=== PATIENT | female | born 1960 | race African-American/Black ===

== ENCOUNTER 2018-11-20 14:44 | Emergency (ER) | payer OTHER ==
[~2018-11-20] VITALS: Ht 162.6 cm; Wt 95.5 kg
--- NOTE | 2018-11-20 16:09 | REP ---
CT brain without contrast: History: Headache. No comparison brain imaging. Findings: Preliminary digital business transformation manager radiograph is unremarkable. Bone window settings demonstrate an intact calvarium. There is fairly heavy vascular calcification in the distal internal carotid arteries bilaterally. On soft tissue window settings, lateral, third, and fourth ventricles are normal in size and position. There is no evidence of hemorrhage or infarction. No mass, extra-axial fluid collection or midline shift is seen. Andres white differentiation pattern is normal. Impression: Vascular calcification. No acute intracranial abnormality. Electronically Signed by Marcos Meredith MD 11/20/2018 04:27 P
[2018-11-20] MEDS ORDERED: METOCLOPRAMIDE INJ 10MG/2ML VIAL (J2765) IV ONE (16:15)
[2018-11-20] MEDS ORDERED: NS 1,000 ML IV ONE (16:15)
[2018-11-20 17:01] LABS: BASO % 0.7 % (0.0-1.0); EOS # 0.2 10^3/uL (0.0-0.50); EOS % 3.3 % (0.0-3.0); HEMATOCRIT 40.6 % (36.0-47.0); HEMOGLOBIN 13.4 g/dl (12.0-15.5); LYMPH % 36.3 % (24.0-44.0); MEAN CORPUSCULAR HEMOGLOBIN 32.4 pg (27.0-33.0); MEAN CORPUSCULAR VOLUME 98.3 fl (80.0-96.0); MONO # 0.5 10^3/uL (0.0-0.8); MONO % 9.2 % (0.0-5.0); NEUTROPHILS # 2.8 10^3/uL (1.8-7.7); NEUTROPHILS % 50.1 % (36.0-66.0); PLATELET COUNT, AUTOMATED 210 10^3/uL (150-450); RED BLOOD COUNT 4.13 10^6/uL (4.00-5.40); WHITE BLOOD COUNT 5.5 10^3/uL (4.0-10.0)
[2018-11-20 17:14] LABS: ALBUMIN 3.7 GM/DL (3.2-5.2); ALT/SGPT 28 U/L (12-78); AMYLASE 59 U/L (25-115); BILIRUBIN,DIRECT 0.1 MG/DL (0.0-0.2); BILIRUBIN,TOTAL 0.5 MG/DL (0.2-1.0); BLOOD UREA NITROGEN 13 MG/DL (7-18); CALCIUM LEVEL 9.9 MG/DL (8.5-10.1); CARBON DIOXIDE LEVEL 27 MEQ/L (21-32); CHLORIDE LEVEL 106 MEQ/L (98-107); CK-MB VALUE MASS 1.6 NG/ML (<3.6); CPK CREATINE PHOSPHOKINASE 205 U/L (26-192); CREATININE FOR GFR 1.05 MG/DL (0.55-1.30); GLOMERULAR FILTRATION RATE 57.1 (>51); GLUCOSE, FASTING 94 MG/DL (70-100); LIPASE 210 U/L (73-393); MB/CK RELATIVE INDEX 0.78 (< OR =4); POTASSIUM SERUM 3.7 MEQ/L (3.5-5.1); SODIUM LEVEL 140 MEQ/L (136-145); TOTAL PROTEIN 7.5 GM/DL (6.4-8.2); TROPONIN I < 0.02 NG/ML (< 0.10)
[2018-11-20] MEDS ORDERED: REGL5TAB2 PO (19:19)
[2018-11-20] MEDS ORDERED: KETO10TAB PO (19:19)
[2018-11-20 19:35] VITALS: BP 141/73
--- NOTE | 2018-11-22 05:25 | ECGEPIP ---
[facility] - ED Test Date: 2018-11-20 Pat Name: SYMONE ANGEL Department: Room: - Gender: Female Customer Resource Specialist: MELINDA : 1960 Requested By: MISHA Duvall Order Number: [id number] Reading MD: Garrison Morrison Measurements Intervals [place] Rate: 61 P: 60 NE: 161 QRS: 5 QRSD: 92 T: 46 QT: 414 QTc: 417 Interpretive Statements SINUS RHYTHM NO PRIORS FOR COMPARISON Electronically Signed on 11-22-2018 5:24:57 EDT by Garrison Morrison
== END 2018-11-20 19:48 | disposition home or self-care (01) ==
LOC: EDBD 14:44 → M ED 14:44
DX: R51 Headache (principal); M54.5 Low back pain; I10 Essential (primary) hypertension; I70.8 Atherosclerosis of other arteries
CPT/HCPCS: 36415; 70450; 80048; 80076; 82150; 82550; 82553; 83690; 84484; 85025; 93005; 93041; 96361; 96374; 99285; J2765

== ENCOUNTER 2023-01-23 22:52 | Inpatient (IN) | payer BC, OTHER ==
[~2023-01-23] VITALS: Ht 165.1 cm; Wt 68.2 kg
[~2023-01-23 22:52] MED LIST: KETO10TAB PO; REGL5TAB2 PO
[2023-01-24 00:57] LABS: ETHYL ALCOHOL (ETHANOL) < 0.003 % (0.000-0.010)
[2023-01-24 00:58] LABS: SALICYLATE LEVEL < 3.0 MG/DL (<30)
[2023-01-24 00:59] LABS: ALBUMIN 4.2 G/DL (3.2-5.2); ALKALINE PHOSPHATASE 69 U/L (46-116); ALT/SGPT 41 U/L (7.0-40); AST/SGOT 16 U/L (<34); BILIRUBIN,DIRECT 0.2 MG/DL (<0.4); BILIRUBIN,TOTAL 0.7 MG/DL (0.3-1.2); BLOOD UREA NITROGEN 15 MG/DL (9-23); CALCIUM LEVEL 11.2 MG/DL (8.3-10.6); CARBON DIOXIDE LEVEL 26 MMOL/L (20-31); CHLORIDE LEVEL 106 MMOL/L (98-107); CREATININE FOR GFR 0.73 MG/DL (0.55-1.30); GLOMERULAR FILTRATION RATE > 60.0 (>45); GLUCOSE, FASTING 114 MG/DL (74-106); SODIUM LEVEL 141 MMOL/L (136-145); TOTAL PROTEIN 7.9 G/DL (5.7-8.2)
[2023-01-24 01:01] LABS: HEMATOCRIT 40.5 % (36.0-47.0); HEMOGLOBIN 13.3 g/dl (12.0-15.5); MEAN CORPUSCULAR HEMOGLOBIN 31.3 pg (27.0-33.0); MEAN CORPUSCULAR HGB CONC 32.8 g/dl (32.0-36.5); MEAN CORPUSCULAR VOLUME 95.3 fl (80.0-96.0); PLATELET COUNT, AUTOMATED 211 10^3/uL (150-450); RED BLOOD COUNT 4.25 10^6/uL (4.00-5.40); THYROID STIMULATING HORMONE 1.633 uIU/ML (0.55-4.78)
[2023-01-24 03:01] LABS: BARBITURATES URINE NEGATIVE (NEGATIVE); COCAINE METABOLITE URINE NEGATIVE (NEGATIVE); METHADONE URINE NEGATIVE (NEGATIVE); OPIATES URINE NEGATIVE (NEGATIVE); PHENCYCLIDINE URINE NEGATIVE (NEGATIVE)
[2023-01-24 03:02] LABS: AMPHETAMINES LEVEL URINE NEGATIVE (NEGATIVE); BENZODIAZEPINES URINE NEGATIVE (NEGATIVE); CANNABINOIDS URINE NEGATIVE (NEGATIVE)
[2023-01-24] MEDS ORDERED: HALOPERIDOL 5MG/ML 1ML VIAL IM STA (06:05)
[2023-01-24] MEDS ORDERED: HALO10TA20 PO (06:07)
[2023-01-24] MEDS ORDERED: CLON-412 PO (06:07)
[2023-01-24] MEDS ORDERED: ASPI-161 PO ×2 (06:07→10:05)
[2023-01-24] MEDS ORDERED: LORazepam 2 MG TAB PO STA (08:18)
[2023-01-24] MEDS ORDERED: MED REC IN PROGRESS XX SCH (08:30)
[2023-01-24] MEDS ORDERED: ASPIRIN 81MG ENTERIC TABLET PO SCH (09:00)
[2023-01-24] MEDS ORDERED: DYAZIDE 37.5/25 CAP (TRIAM/HCTZ) PO SCH (09:00)
[2023-01-24] MEDS ORDERED: LORazepam 2 MG/ML 1ML VIAL IM STA (09:20)
[2023-01-24] MEDS ORDERED: SERT50TA29 PO (09:46)
[2023-01-24] MEDS ORDERED: MIRT-10 PO (09:46)
[2023-01-24] MEDS ORDERED: TRIA37.5 PO (09:46)
[2023-01-24] MEDS ORDERED: LISI20TA33 PO (09:46)
[2023-01-24] MEDS ORDERED: HYDR-3910 PO (09:46)
[2023-01-24] MEDS ORDERED: PRAV80TA2 PO (09:46)
[2023-01-24] MEDS ORDERED: LORA2CON5 PO (10:03)
[2023-01-24] MEDS ORDERED: ASPI81TA26 PO (10:03)
[2023-01-24] MEDS ORDERED: LORA2TAB14 PO (10:05)
[2023-01-24] MEDS ORDERED: HOME MED LIST COMPLETE! XX SCH (10:15)
[2023-01-24] MEDS ORDERED: diphenhydrAMINE 25MG CAP PO PRN (13:30)
[2023-01-24] MEDS ORDERED: traZODone 50 MG TAB PO PRN (13:30)
[2023-01-24] MEDS ORDERED: MOM 30ML SUSPENSION UDC PO PRN (13:30)
[2023-01-24] MEDS ORDERED: MAALOX 30 ML SUSP *UDC PO PRN (13:30)
[2023-01-24 14:57] LABS: CPK CREATINE PHOSPHOKINASE 148 U/L (34-145)
[2023-01-24] MEDS: SERTRALINE HCL 50 MG TAB PO SCH (18:01)
[2023-01-24] MEDS: LORazepam 2 MG TAB PO SCH (18:01)
[2023-01-24] MEDS ORDERED: **hydrALAZINE HCL** 25 MG TAB PO SCH (21:00)
[2023-01-24] MEDS: **hydrALAZINE HCL** 25 MG TAB PO SCH (22:01)
[2023-01-25] MEDS: LORazepam 2 MG TAB PO SCH ×4 (01:22→17:36)
[2023-01-25] MEDS: PRAVASTATIN 20 MG TAB PO SCH (09:00)
[2023-01-25] MEDS: ENOXAPARIN 40MG/0.4ML SYRINGE (J1650 PER 10MG) SC SCH (09:00)
[2023-01-25] MEDS: **hydrALAZINE HCL** 25 MG TAB PO SCH ×2 (09:00→21:10)
[2023-01-25] MEDS: SERTRALINE HCL 50 MG TAB PO SCH (09:00)
[2023-01-25] MEDS: ASPIRIN 81MG ENTERIC TABLET PO SCH (09:00)
[2023-01-25 17:56] VITALS: BP 154/92; TEMP 99.8; O2SAT 97
[2023-01-26] MEDS: LORazepam 2 MG TAB PO SCH ×5 (00:07→23:54)
[2023-01-26 06:43] VITALS: BP 118/74; TEMP 97.8; O2SAT 94
[2023-01-26] MEDS: PRAVASTATIN 20 MG TAB PO SCH (09:00)
[2023-01-26] MEDS: SERTRALINE HCL 50 MG TAB PO SCH (09:00)
[2023-01-26] MEDS: ENOXAPARIN 40MG/0.4ML SYRINGE (J1650 PER 10MG) SC SCH (09:00)
[2023-01-26] MEDS: **hydrALAZINE HCL** 25 MG TAB PO SCH ×2 (09:00→20:33)
[2023-01-26] MEDS: ASPIRIN 81MG ENTERIC TABLET PO SCH (09:00)
[2023-01-26 18:28] VITALS: BP 153/81; TEMP 100.2; O2SAT 98
[2023-01-26 18:47] VITALS: TEMP 99
[2023-01-27] MEDS: LORazepam 2 MG TAB PO SCH ×4 (06:00→23:48)
[2023-01-27 06:19] VITALS: BP 142/78; TEMP 97.6; O2SAT 95
[2023-01-27] MEDS: ENOXAPARIN 40MG/0.4ML SYRINGE (J1650 PER 10MG) SC SCH ×2 (09:00→10:19)
[2023-01-27] MEDS: PRAVASTATIN 20 MG TAB PO SCH ×2 (09:00→10:18)
[2023-01-27] MEDS: **hydrALAZINE HCL** 25 MG TAB PO SCH ×2 (10:18→21:02)
[2023-01-27] MEDS: ASPIRIN 81MG ENTERIC TABLET PO SCH (10:18)
[2023-01-27] MEDS: SERTRALINE HCL 50 MG TAB PO SCH (10:19)
[2023-01-27] MEDS: ACETAMINOPHEN TAB 650MG DOSE (2X325MG) PO PRN (14:36)
[2023-01-27 17:02] VITALS: BP 142/88; TEMP 98.2; O2SAT 99
[2023-01-28] MEDS: LORazepam 2 MG TAB PO SCH ×4 (05:48→23:58)
[2023-01-28 06:10] VITALS: BP 131/62; TEMP 97.9; O2SAT 96
[2023-01-28] MEDS: ENOXAPARIN 40MG/0.4ML SYRINGE (J1650 PER 10MG) SC SCH (09:00)
[2023-01-28] MEDS: SERTRALINE HCL 50 MG TAB PO SCH (09:00)
[2023-01-28] MEDS: PRAVASTATIN 20 MG TAB PO SCH (09:00)
[2023-01-28] MEDS: ASPIRIN 81MG ENTERIC TABLET PO SCH (10:05)
[2023-01-28] MEDS: **hydrALAZINE HCL** 25 MG TAB PO SCH ×2 (10:07→21:17)
[2023-01-29] MEDS: LORazepam 2 MG TAB PO SCH ×3 (05:37→18:00)
[2023-01-29 06:36] VITALS: BP 139/83; TEMP 98.3; O2SAT 98
[2023-01-29] MEDS: ENOXAPARIN 40MG/0.4ML SYRINGE (J1650 PER 10MG) SC SCH (09:00)
[2023-01-29] MEDS: ASPIRIN 81MG ENTERIC TABLET PO SCH (09:27)
[2023-01-29] MEDS: **hydrALAZINE HCL** 25 MG TAB PO SCH ×2 (09:28→21:55)
[2023-01-29] MEDS: PRAVASTATIN 20 MG TAB PO SCH (09:51)
[2023-01-29] MEDS: SERTRALINE HCL 50 MG TAB PO SCH (10:16)
[2023-01-29 16:24] VITALS: BP 144/90; TEMP 98.9; O2SAT 100
[2023-01-29] MEDS: ACETAMINOPHEN TAB 650MG DOSE (2X325MG) PO PRN (18:09)
[2023-01-30] MEDS: LORazepam 2 MG TAB PO SCH ×6 (06:00→23:14)
[2023-01-30 06:39] VITALS: BP 149/82; TEMP 97.6; O2SAT 98
[2023-01-30] MEDS: **hydrALAZINE HCL** 25 MG TAB PO SCH ×4 (09:00→21:43)
[2023-01-30] MEDS: ENOXAPARIN 40MG/0.4ML SYRINGE (J1650 PER 10MG) SC SCH (09:00)
[2023-01-30] MEDS: SERTRALINE HCL 50 MG TAB PO SCH (09:52)
[2023-01-30] MEDS: ASPIRIN 81MG ENTERIC TABLET PO SCH (09:53)
[2023-01-30] MEDS: PRAVASTATIN 20 MG TAB PO SCH (09:54)
[2023-01-30 15:36] LABS: HEMATOCRIT 37.4 % (36.0-47.0); MEAN CORPUSCULAR HEMOGLOBIN 31.3 pg (27.0-33.0); MEAN CORPUSCULAR HGB CONC 32.1 g/dl (32.0-36.5); MEAN CORPUSCULAR VOLUME 97.4 fl (80.0-96.0); PLATELET COUNT, AUTOMATED 172 10^3/uL (150-450); RED BLOOD COUNT 3.84 10^6/uL (4.00-5.40)
[2023-01-31] MEDS: LORazepam 2 MG TAB PO SCH ×3 (06:00→18:00)
[2023-01-31 06:37] VITALS: BP 124/71; TEMP 98.3; O2SAT 98
[2023-01-31] MEDS: ENOXAPARIN 40MG/0.4ML SYRINGE (J1650 PER 10MG) SC SCH (09:00)
[2023-01-31] MEDS: SERTRALINE 100 MG TAB PO SCH (09:00)
[2023-01-31] MEDS: PRAVASTATIN 20 MG TAB PO SCH (10:38)
[2023-01-31] MEDS: ASPIRIN 81MG ENTERIC TABLET PO SCH (10:38)
[2023-01-31] MEDS: **hydrALAZINE HCL** 25 MG TAB PO SCH ×2 (10:39→21:14)
[2023-01-31 16:23] VITALS: BP 124/79; TEMP 98.8; O2SAT 98
[2023-02-01] MEDS: LORazepam 2 MG TAB PO SCH ×4 (05:46→18:00)
[2023-02-01 06:24] VITALS: TEMP 97.9
[2023-02-01] MEDS: **hydrALAZINE HCL** 25 MG TAB PO SCH ×2 (09:00→22:12)
[2023-02-01] MEDS: SERTRALINE 100 MG TAB PO SCH (09:00)
[2023-02-01] MEDS: PRAVASTATIN 20 MG TAB PO SCH (09:00)
[2023-02-01] MEDS: ENOXAPARIN 40MG/0.4ML SYRINGE (J1650 PER 10MG) SC SCH (09:00)
[2023-02-01] MEDS: ASPIRIN 81MG ENTERIC TABLET PO SCH (09:00)
[2023-02-02] MEDS: LORazepam 2 MG TAB PO SCH ×4 (05:46→17:38)
[2023-02-02 06:24] VITALS: BP 156/90; TEMP 98.9; O2SAT 99
[2023-02-02 06:53] VITALS: BP 154/78
[2023-02-02] MEDS: SERTRALINE 100 MG TAB PO SCH (09:00)
[2023-02-02] MEDS: ENOXAPARIN 40MG/0.4ML SYRINGE (J1650 PER 10MG) SC SCH (09:00)
[2023-02-02] MEDS: PRAVASTATIN 20 MG TAB PO SCH (09:00)
[2023-02-02] MEDS: ASPIRIN 81MG ENTERIC TABLET PO SCH (09:00)
[2023-02-02] MEDS: **hydrALAZINE HCL** 25 MG TAB PO SCH ×2 (10:36→21:57)
[2023-02-02 16:49] VITALS: BP 162/98; TEMP 98.8; O2SAT 98
[2023-02-03] MEDS: LORazepam 2 MG TAB PO SCH ×4 (06:40→18:00)
[2023-02-03 06:42] VITALS: BP 150/82; TEMP 99.6; O2SAT 100
[2023-02-03] MEDS ORDERED: BENZTROPINE 1 MG TAB PO PRN (09:00)
[2023-02-03] MEDS: PRAVASTATIN 20 MG TAB PO SCH (09:00)
[2023-02-03] MEDS: ENOXAPARIN 40MG/0.4ML SYRINGE (J1650 PER 10MG) SC SCH (09:00)
[2023-02-03] MEDS: ASPIRIN 81MG ENTERIC TABLET PO SCH (10:23)
[2023-02-03] MEDS: **hydrALAZINE HCL** 25 MG TAB PO SCH ×2 (10:23→21:19)
[2023-02-03] MEDS: SERTRALINE 100 MG TAB PO SCH (10:24)
[2023-02-03 15:58] VITALS: BP 138/84; TEMP 98; O2SAT 98
[2023-02-04] MEDS: LORazepam 2 MG TAB PO SCH ×4 (00:15→18:00)
[2023-02-04 06:31] VITALS: BP 147/77; TEMP 99.3; O2SAT 98
[2023-02-04] MEDS: ENOXAPARIN 40MG/0.4ML SYRINGE (J1650 PER 10MG) SC SCH (09:00)
[2023-02-04] MEDS: PRAVASTATIN 20 MG TAB PO SCH (09:00)
[2023-02-04] MEDS: SERTRALINE 100 MG TAB PO SCH (09:00)
[2023-02-04] MEDS: ASPIRIN 81MG ENTERIC TABLET PO SCH (10:54)
[2023-02-04] MEDS: **hydrALAZINE HCL** 25 MG TAB PO SCH ×2 (10:55→21:36)
[2023-02-04 16:18] VITALS: BP 138/84; TEMP 98.1; O2SAT 99
[2023-02-05] MEDS: LORazepam 2 MG TAB PO SCH ×5 (05:39→23:10)
[2023-02-05 06:16] VITALS: BP 167/83; TEMP 97.9; O2SAT 96
[2023-02-05] MEDS: **hydrALAZINE HCL** 25 MG TAB PO SCH ×2 (09:00→21:00)
[2023-02-05] MEDS: PRAVASTATIN 20 MG TAB PO SCH (09:00)
[2023-02-05] MEDS: ENOXAPARIN 40MG/0.4ML SYRINGE (J1650 PER 10MG) SC SCH (09:00)
[2023-02-05] MEDS: SERTRALINE 100 MG TAB PO SCH (09:00)
[2023-02-05] MEDS: ASPIRIN 81MG ENTERIC TABLET PO SCH (09:00)
[2023-02-05 17:06] VITALS: BP 131/86; TEMP 98.6; O2SAT 98
[2023-02-06] MEDS: LORazepam 2 MG TAB PO SCH ×4 (05:34→23:25)
[2023-02-06 06:00] VITALS: BP 161/76; TEMP 98.1; O2SAT 99
[2023-02-06] MEDS: ASPIRIN 81MG ENTERIC TABLET PO SCH (09:00)
[2023-02-06] MEDS: **hydrALAZINE HCL** 25 MG TAB PO SCH ×2 (09:00→21:57)
[2023-02-06] MEDS: ENOXAPARIN 40MG/0.4ML SYRINGE (J1650 PER 10MG) SC SCH (09:00)
[2023-02-06] MEDS: PRAVASTATIN 20 MG TAB PO SCH (09:00)
[2023-02-06] MEDS: SERTRALINE 100 MG TAB PO SCH (09:00)
[2023-02-06] MEDS ORDERED: HALOPERIDOL 5MG/ML 1ML VIAL IM STA (10:44)
[2023-02-06] MEDS ORDERED: LORazepam 2 MG/ML 1ML VIAL IM STA (10:44)
[2023-02-06 17:55] VITALS: BP 142/90; TEMP 98.9; O2SAT 100
[2023-02-07] MEDS: LORazepam 2 MG TAB PO SCH ×4 (06:06→18:00)
[2023-02-07 06:52] VITALS: BP_SYST 156; BP_SYST 90; BP_DIAS 54; BP_DIAS 86; TEMP 97.7; TEMP 98.3; O2SAT 97; O2SAT 99
[2023-02-07] MEDS: SERTRALINE 100 MG TAB PO SCH ×2 (09:00→09:57)
[2023-02-07] MEDS: ENOXAPARIN 40MG/0.4ML SYRINGE (J1650 PER 10MG) SC SCH ×2 (09:00→09:57)
[2023-02-07] MEDS: ASPIRIN 81MG ENTERIC TABLET PO SCH (09:56)
[2023-02-07] MEDS: PRAVASTATIN 20 MG TAB PO SCH (09:56)
[2023-02-07] MEDS: **hydrALAZINE HCL** 25 MG TAB PO SCH ×2 (09:57→21:36)
[2023-02-07] MEDS ORDERED: HALOPERIDOL 5MG/ML 1ML VIAL IM STA (12:55)
[2023-02-07] MEDS ORDERED: LORazepam 2 MG/ML 1ML VIAL IM STA (12:55)
[2023-02-07 16:07] VITALS: BP 143/88; TEMP 98.1; O2SAT 97
[2023-02-08] MEDS: LORazepam 2 MG TAB PO SCH ×4 (06:00→21:00)
[2023-02-08 06:09] VITALS: BP 164/86; TEMP 98.3; O2SAT 95
[2023-02-08] MEDS: ENOXAPARIN 40MG/0.4ML SYRINGE (J1650 PER 10MG) SC SCH (09:00)
[2023-02-08] MEDS: SERTRALINE 100 MG TAB PO SCH (09:00)
[2023-02-08] MEDS: ASPIRIN 81MG ENTERIC TABLET PO SCH (09:28)
[2023-02-08] MEDS: PRAVASTATIN 20 MG TAB PO SCH (09:28)
[2023-02-08] MEDS: **hydrALAZINE HCL** 25 MG TAB PO SCH ×2 (09:29→21:47)
[2023-02-09 06:40] VITALS: BP 139/75; TEMP 98.9; O2SAT 96
[2023-02-09] MEDS: LORazepam 2 MG TAB PO SCH ×4 (09:00→21:00)
[2023-02-09] MEDS: ENOXAPARIN 40MG/0.4ML SYRINGE (J1650 PER 10MG) SC SCH (09:00)
[2023-02-09] MEDS: SERTRALINE 100 MG TAB PO SCH ×2 (09:00→09:59)
[2023-02-09] MEDS: ASPIRIN 81MG ENTERIC TABLET PO SCH (09:58)
[2023-02-09] MEDS: PRAVASTATIN 20 MG TAB PO SCH (09:59)
[2023-02-09] MEDS: **hydrALAZINE HCL** 25 MG TAB PO SCH ×2 (09:59→21:00)
[2023-02-10 06:08] VITALS: BP 144/76; TEMP 98.3; O2SAT 98
[2023-02-10] MEDS: ENOXAPARIN 40MG/0.4ML SYRINGE (J1650 PER 10MG) SC SCH (09:00)
[2023-02-10] MEDS: LORazepam 2 MG TAB PO SCH ×3 (09:00→21:00)
[2023-02-10] MEDS: SERTRALINE 100 MG TAB PO SCH (09:00)
[2023-02-10] MEDS: PRAVASTATIN 20 MG TAB PO SCH (09:37)
[2023-02-10] MEDS: **hydrALAZINE HCL** 25 MG TAB PO SCH ×2 (09:37→21:41)
[2023-02-10] MEDS: ASPIRIN 81MG ENTERIC TABLET PO SCH (09:37)
[2023-02-11 06:15] VITALS: BP 166/89; TEMP 98.6; O2SAT 99
[2023-02-11 06:17] VITALS: BP 158/90
[2023-02-11 06:53] VITALS: BP 142/94
[2023-02-11] MEDS: LORazepam 2 MG TAB PO SCH ×3 (08:59→21:00)
[2023-02-11] MEDS: SERTRALINE 100 MG TAB PO SCH (08:59)
[2023-02-11] MEDS: **hydrALAZINE HCL** 25 MG TAB PO SCH ×2 (08:59→21:00)
[2023-02-11] MEDS: ASPIRIN 81MG ENTERIC TABLET PO SCH (09:00)
[2023-02-11] MEDS: ENOXAPARIN 40MG/0.4ML SYRINGE (J1650 PER 10MG) SC SCH (09:00)
[2023-02-11] MEDS: PRAVASTATIN 20 MG TAB PO SCH (09:00)
[2023-02-11] MEDS: ACETAMINOPHEN TAB 650MG DOSE (2X325MG) PO PRN (12:45)
[2023-02-11] MEDS: IBUPROFEN 400MG TAB PO PRN (14:48)
[2023-02-12 06:23] VITALS: BP 148/72; TEMP 99; O2SAT 96
[2023-02-12] MEDS: LORazepam 2 MG TAB PO SCH ×3 (09:51→21:00)
[2023-02-12] MEDS: ASPIRIN 81MG ENTERIC TABLET PO SCH (09:52)
[2023-02-12] MEDS: SERTRALINE 100 MG TAB PO SCH (09:52)
[2023-02-12] MEDS: **hydrALAZINE HCL** 25 MG TAB PO SCH ×2 (09:52→21:00)
[2023-02-12] MEDS: PRAVASTATIN 20 MG TAB PO SCH (09:52)
[2023-02-12] MEDS: ENOXAPARIN 40MG/0.4ML SYRINGE (J1650 PER 10MG) SC SCH (10:02)
[2023-02-12 17:52] VITALS: BP 110/64; TEMP 97.8; O2SAT 97
[2023-02-12] MEDS: BENZTROPINE 1 MG TAB PO SCH (21:00)
[2023-02-13 06:48] VITALS: BP 140/75; TEMP 97.9; O2SAT 97
[2023-02-13] MEDS: ENOXAPARIN 40MG/0.4ML SYRINGE (J1650 PER 10MG) SC SCH (09:00)
[2023-02-13] MEDS: BENZTROPINE 1 MG TAB PO SCH ×2 (09:00→21:00)
[2023-02-13] MEDS: LORazepam 2 MG TAB PO SCH ×3 (10:37→21:46)
[2023-02-13] MEDS: PRAVASTATIN 20 MG TAB PO SCH (10:37)
[2023-02-13] MEDS: **hydrALAZINE HCL** 25 MG TAB PO SCH ×2 (10:37→21:57)
[2023-02-13] MEDS: ASPIRIN 81MG ENTERIC TABLET PO SCH (10:38)
[2023-02-13] MEDS: SERTRALINE 100 MG TAB PO SCH (10:38)
[2023-02-13 16:18] VITALS: BP 134/82; TEMP 97.1; O2SAT 98
[2023-02-14 06:35] VITALS: BP 119/63; TEMP 98.4; O2SAT 99
[2023-02-14] MEDS: LORazepam 2 MG TAB PO SCH ×3 (09:00→20:22)
[2023-02-14] MEDS: ENOXAPARIN 40MG/0.4ML SYRINGE (J1650 PER 10MG) SC SCH (09:00)
[2023-02-14] MEDS: BENZTROPINE 1 MG TAB PO SCH ×2 (16:01→20:22)
[2023-02-14] MEDS: **hydrALAZINE HCL** 25 MG TAB PO SCH ×2 (16:01→20:23)
[2023-02-14] MEDS: ASPIRIN 81MG ENTERIC TABLET PO SCH (16:02)
[2023-02-14] MEDS: PRAVASTATIN 20 MG TAB PO SCH (16:02)
[2023-02-14 16:07] VITALS: BP 141/75; TEMP 99; O2SAT 97
[2023-02-14] MEDS: SERTRALINE 100 MG TAB PO SCH (16:24)
[2023-02-15 06:35] VITALS: BP 127/69; TEMP 97.7; O2SAT 98
[2023-02-15] MEDS: LORazepam 2 MG TAB PO SCH ×3 (09:00→20:42)
[2023-02-15] MEDS: PRAVASTATIN 20 MG TAB PO SCH (09:00)
[2023-02-15] MEDS: **hydrALAZINE HCL** 25 MG TAB PO SCH ×2 (09:00→20:51)
[2023-02-15] MEDS: ENOXAPARIN 40MG/0.4ML SYRINGE (J1650 PER 10MG) SC SCH (09:00)
[2023-02-15] MEDS: SERTRALINE 100 MG TAB PO SCH (09:00)
[2023-02-15] MEDS: BENZTROPINE 1 MG TAB PO SCH ×2 (09:00→20:42)
[2023-02-15] MEDS: ASPIRIN 81MG ENTERIC TABLET PO SCH (09:00)
[2023-02-16 06:26] VITALS: BP 123/66; TEMP 99.1; O2SAT 100
[2023-02-16] MEDS: ASPIRIN 81MG ENTERIC TABLET PO SCH (09:00)
[2023-02-16] MEDS: SERTRALINE 100 MG TAB PO SCH (09:00)
[2023-02-16] MEDS: LORazepam 2 MG TAB PO SCH ×3 (09:00→22:20)
[2023-02-16] MEDS: BENZTROPINE 1 MG TAB PO SCH ×2 (09:00→22:20)
[2023-02-16] MEDS: **hydrALAZINE HCL** 25 MG TAB PO SCH ×2 (09:00→22:21)
[2023-02-16] MEDS: PRAVASTATIN 20 MG TAB PO SCH (09:57)
[2023-02-16 16:26] VITALS: BP 140/92; TEMP 98.9; O2SAT 98
[2023-02-17 06:34] VITALS: BP 141/83; TEMP 97.7; O2SAT 100
[2023-02-17] MEDS: BENZTROPINE 1 MG TAB PO SCH ×2 (09:00→21:44)
[2023-02-17] MEDS: ASPIRIN 81MG ENTERIC TABLET PO SCH (09:12)
[2023-02-17] MEDS: **hydrALAZINE HCL** 25 MG TAB PO SCH ×2 (09:13→21:50)
[2023-02-17] MEDS: SERTRALINE 100 MG TAB PO SCH (09:13)
[2023-02-17] MEDS: LORazepam 2 MG TAB PO SCH ×3 (09:13→21:44)
[2023-02-17] MEDS: PRAVASTATIN 20 MG TAB PO SCH (09:14)
[2023-02-17 09:42] VITALS: BP 142/80
[2023-02-18 06:25] VITALS: BP 130/74; TEMP 99.4; O2SAT 97
[2023-02-18] MEDS: SERTRALINE 100 MG TAB PO SCH (09:54)
[2023-02-18] MEDS: LORazepam 2 MG TAB PO SCH ×3 (09:54→21:00)
[2023-02-18] MEDS: PRAVASTATIN 20 MG TAB PO SCH (09:54)
[2023-02-18] MEDS: ASPIRIN 81MG ENTERIC TABLET PO SCH (09:54)
[2023-02-18] MEDS: BENZTROPINE 1 MG TAB PO SCH ×2 (09:55→21:00)
[2023-02-18] MEDS: **hydrALAZINE HCL** 25 MG TAB PO SCH ×2 (09:55→21:00)
[2023-02-18 10:10] VITALS: BP 138/76
[2023-02-18 15:19] VITALS: BP 136/71; TEMP 97.6; O2SAT 96
[2023-02-18 17:19] VITALS: BP 122/78; TEMP 98.2; O2SAT 98
[2023-02-19 06:18] VITALS: BP 138/90; TEMP 97.7; O2SAT 100
[2023-02-19] MEDS: BENZTROPINE 1 MG TAB PO SCH ×2 (09:00→21:15)
[2023-02-19] MEDS: PRAVASTATIN 20 MG TAB PO SCH (09:00)
[2023-02-19] MEDS: SERTRALINE 100 MG TAB PO SCH (09:00)
[2023-02-19] MEDS: LORazepam 2 MG TAB PO SCH ×3 (09:00→21:15)
[2023-02-19] MEDS: ASPIRIN 81MG ENTERIC TABLET PO SCH (09:00)
[2023-02-19] MEDS: **hydrALAZINE HCL** 25 MG TAB PO SCH ×2 (09:39→21:22)
[2023-02-19 18:14] VITALS: BP 136/82; TEMP 99.5; O2SAT 100
[2023-02-20 06:08] VITALS: BP 134/75; TEMP 98.4; O2SAT 98
[2023-02-20] MEDS: BENZTROPINE 1 MG TAB PO SCH ×2 (09:00→21:32)
[2023-02-20] MEDS: SERTRALINE 100 MG TAB PO SCH (09:00)
[2023-02-20] MEDS: **hydrALAZINE HCL** 25 MG TAB PO SCH ×2 (09:12→21:32)
[2023-02-20] MEDS: LORazepam 2 MG TAB PO SCH ×3 (09:13→21:32)
[2023-02-20] MEDS: PRAVASTATIN 20 MG TAB PO SCH (09:15)
[2023-02-20] MEDS: ASPIRIN 81MG ENTERIC TABLET PO SCH (09:35)
[2023-02-20 18:37] VITALS: BP 140/84; TEMP 99.4; O2SAT 97
[2023-02-21 06:22] VITALS: BP 136/74; TEMP 97.2; O2SAT 98
[2023-02-21] MEDS: **hydrALAZINE HCL** 25 MG TAB PO SCH ×2 (08:33→21:23)
[2023-02-21] MEDS: PRAVASTATIN 20 MG TAB PO SCH (08:33)
[2023-02-21] MEDS: SERTRALINE 100 MG TAB PO SCH (08:34)
[2023-02-21] MEDS: ASPIRIN 81MG ENTERIC TABLET PO SCH (08:34)
[2023-02-21] MEDS: LORazepam 2 MG TAB PO SCH ×3 (08:34→21:18)
[2023-02-21] MEDS: BENZTROPINE 1 MG TAB PO SCH ×2 (09:00→21:17)
[2023-02-21] MEDS: IBUPROFEN 400MG TAB PO PRN (15:32)
[2023-02-22 06:32] VITALS: BP 145/81; TEMP 99; O2SAT 99
[2023-02-22] MEDS: BENZTROPINE 1 MG TAB PO SCH (09:00)
[2023-02-22] MEDS: SERTRALINE 100 MG TAB PO SCH (09:00)
[2023-02-22] MEDS: LORazepam 2 MG TAB PO SCH ×3 (09:00→20:59)
[2023-02-22] MEDS: PRAVASTATIN 20 MG TAB PO SCH (09:29)
[2023-02-22] MEDS: ASPIRIN 81MG ENTERIC TABLET PO SCH (09:30)
[2023-02-22] MEDS: **hydrALAZINE HCL** 25 MG TAB PO SCH ×2 (09:30→21:05)
[2023-02-22] MEDS: ACETAMINOPHEN TAB 650MG DOSE (2X325MG) PO PRN (09:53)
[2023-02-22] MEDS ORDERED: BENZTROPINE MESYLATE 2MG/2ML VIAL IM PRN (09:55)
[2023-02-22 18:13] VITALS: BP 148/88; TEMP 99.1
[2023-02-23 06:22] VITALS: BP 99/56; TEMP 100.7; O2SAT 97
[2023-02-23] MEDS: ASPIRIN 81MG ENTERIC TABLET PO SCH (09:00)
[2023-02-23] MEDS: LORazepam 2 MG TAB PO SCH ×3 (09:00→20:52)
[2023-02-23] MEDS: PRAVASTATIN 20 MG TAB PO SCH (09:00)
[2023-02-23] MEDS: **hydrALAZINE HCL** 25 MG TAB PO SCH ×2 (09:00→20:43)
[2023-02-23] MEDS: SERTRALINE 100 MG TAB PO SCH (09:00)
[2023-02-23 16:11] VITALS: BP 140/72; TEMP 100.1; O2SAT 95
[2023-02-24 06:22] VITALS: BP 127/66; TEMP 100; O2SAT 100
[2023-02-24] MEDS: LORazepam 2 MG TAB PO SCH ×3 (09:48→21:07)
[2023-02-24] MEDS: **hydrALAZINE HCL** 25 MG TAB PO SCH ×2 (09:48→21:28)
[2023-02-24] MEDS: ASPIRIN 81MG ENTERIC TABLET PO SCH (09:48)
[2023-02-24] MEDS: SERTRALINE 100 MG TAB PO SCH (09:48)
[2023-02-24] MEDS: PRAVASTATIN 20 MG TAB PO SCH (09:48)
[2023-02-24 18:50] VITALS: BP 153/78; TEMP 98.4; O2SAT 97
[2023-02-25 06:23] VITALS: BP 124/61; TEMP 100.2; O2SAT 100
[2023-02-25] MEDS: SERTRALINE 100 MG TAB PO SCH (09:16)
[2023-02-25] MEDS: PRAVASTATIN 20 MG TAB PO SCH (09:16)
[2023-02-25] MEDS: ASPIRIN 81MG ENTERIC TABLET PO SCH (09:20)
[2023-02-25] MEDS: LORazepam 2 MG TAB PO SCH ×3 (09:23→21:00)
[2023-02-25] MEDS: **hydrALAZINE HCL** 25 MG TAB PO SCH ×2 (09:25→21:00)
[2023-02-25 18:16] VITALS: BP 113/64; TEMP 99; O2SAT 100
[2023-02-26 05:57] VITALS: BP 142/80; TEMP 98; O2SAT 100
[2023-02-26] MEDS: SERTRALINE 100 MG TAB PO SCH ×2 (09:00→10:12)
[2023-02-26] MEDS: LORazepam 2 MG TAB PO SCH ×5 (09:00→21:04)
[2023-02-26] MEDS: PRAVASTATIN 20 MG TAB PO SCH (10:12)
[2023-02-26] MEDS: **hydrALAZINE HCL** 25 MG TAB PO SCH ×2 (10:12→21:13)
[2023-02-26] MEDS: ASPIRIN 81MG ENTERIC TABLET PO SCH (10:13)
[2023-02-26 15:53] VITALS: BP 125/65; TEMP 99.5
[2023-02-27 06:36] VITALS: BP 115/58; TEMP 98.4; O2SAT 97
[2023-02-27] MEDS: SERTRALINE 100 MG TAB PO SCH (09:00)
[2023-02-27] MEDS: PRAVASTATIN 20 MG TAB PO SCH (09:54)
[2023-02-27] MEDS: LORazepam 2 MG TAB PO SCH ×3 (09:54→21:08)
[2023-02-27] MEDS: ASPIRIN 81MG ENTERIC TABLET PO SCH (09:54)
[2023-02-27] MEDS: **hydrALAZINE HCL** 25 MG TAB PO SCH ×2 (09:55→21:14)
[2023-02-27] MEDS ORDERED: HYDR-3910 PO (15:11)
[2023-02-27] MEDS ORDERED: PRAV80TA2 PO (15:11)
[2023-02-27] MEDS ORDERED: LORA2TAB14 PO (15:11)
[2023-02-27] MEDS ORDERED: TRIA37.5 PO (15:11)
[2023-02-27] MEDS ORDERED: ASPI-161 PO (15:11)
[2023-02-27] MEDS ORDERED: LISI20TA33 PO (15:11)
[2023-02-27] MEDS ORDERED: ZOLO100T PO (15:11)
[2023-02-27] MEDS ORDERED: HALO10TA20 PO (15:11)
[2023-02-27 15:51] VITALS: BP 138/90; TEMP 98.2; O2SAT 99
[2023-02-28 06:24] VITALS: BP 133/72; TEMP 98.4; O2SAT 99
[2023-02-28] MEDS: PRAVASTATIN 20 MG TAB PO SCH (09:29)
[2023-02-28 09:30] VITALS: BP 142/92
[2023-02-28] MEDS: SERTRALINE 100 MG TAB PO SCH (09:30)
[2023-02-28] MEDS: **hydrALAZINE HCL** 25 MG TAB PO SCH (09:30)
[2023-02-28] MEDS: ASPIRIN 81MG ENTERIC TABLET PO SCH (09:31)
[2023-02-28] MEDS: LORazepam 2 MG TAB PO SCH (09:31)
== END 2023-02-28 12:15 | disposition home or self-care (01) | DRG 757 ==
LOC: M ED 22:52 → M ED INP 01-24 13:26 → M PSY 01-24 16:46
PROVIDERS: ADMIT Student in an Organized Health Care Education/Training Program; ATTEND Student in an Organized Health Care Education/Training Program
DX: F06.1 Catatonic disorder due to known physiological condition (principal); E83.52 Hypercalcemia; I10 Essential (primary) hypertension; Z91.199 Patient's noncompliance with other medical treatment and regimen due to unspecified reason; M48.00 Spinal stenosis, site unspecified; F32.9 Major depressive disorder, single episode, unspecified; E78.5 Hyperlipidemia, unspecified; R29.6 Repeated falls; Z79.82 Long term (current) use of aspirin; Z79.899 Other long term (current) drug therapy; Z20.822 Contact with and (suspected) exposure to COVID-19; G24.9 Dystonia, unspecified

== ENCOUNTER 2024-05-13 15:30 | Emergency (ER) | payer BC ==
[~2024-05-13] VITALS: Ht 165.1 cm; Wt 68.2 kg
[~2024-05-13 15:30] MED LIST changes: +ASPI-615 PO; +ASPI81TA26 PO; +ATIV1TAB7 PO; +CLON-412 PO; +HALO10TA20 PO; +HYDR25TA87 PO; +LISI20TA33 PO; +LORA2CON5 PO; +LORA2TAB14 PO; +LORA2TAB15 PO; +MIRT-10 PO; +PRAV80TA2 PO; +SERT50TA29 PO; +TRIA37.5 PO; +ZOLO100T PO
[2024-05-13] MEDS: ACETAMINOPHEN 500 MG TAB PO ONE (20:02)
[2024-05-13] MEDS: LIDOCAINE 5% (LIDODERM) PATCH TD ONE (20:05)
[2024-05-13] MEDS ORDERED: ASPE4PAD TOP (21:25)
[2024-05-13 21:34] VITALS: BP 143/82; TEMP 99.2; O2SAT 94
== END 2024-05-13 21:38 | disposition home or self-care (01) ==
LOC: M ED 15:30
DX: S09.90XA Unspecified injury of head, initial encounter (principal); W01.198A Fall on same level from slipping, tripping and stumbling with subsequent striking against other object, initial encounter; M54.50 Low back pain, unspecified; M54.2 Cervicalgia; M25.561 Pain in right knee; M48.00 Spinal stenosis, site unspecified; M43.16 Spondylolisthesis, lumbar region; M85.80 Other specified disorders of bone density and structure, unspecified site; I10 Essential (primary) hypertension; Y92.002 Bathroom of unspecified non-institutional (private) residence as the place of occurrence of the external cause; Y93.89 Activity, other specified; Y99.9 Unspecified external cause status; Z79.82 Long term (current) use of aspirin; Z79.899 Other long term (current) drug therapy

== ENCOUNTER 2024-05-21 16:48 | Inpatient (IN) | payer BC ==
[~2024-05-21] VITALS: Ht 165.1 cm; Wt 62.3 kg
[~2024-05-21 16:48] MED LIST changes: +ASPE4PAD TOP
[2024-05-21 17:42] LABS: BASO % 0.5 % (0.0-1.0); EOS # 0.1 10^3/uL (0.0-0.5); EOS % 1.8 % (0.0-3.0); HEMOGLOBIN 13.2 g/dl (12.0-15.5); LYMPH # 1.6 10^3/uL (1.5-5.0); LYMPH % 21.2 % (24.0-44.0); MEAN CORPUSCULAR HEMOGLOBIN 31.4 pg (27.0-33.0); MEAN CORPUSCULAR HGB CONC 32.2 g/dl (32.0-36.5); MEAN CORPUSCULAR VOLUME 97.6 fl (80.0-96.0); MONO # 0.5 10^3/uL (0.0-0.8); MONO % 6.3 % (2.0-8.0); NEUTROPHILS # 5.2 10^3/uL (1.5-8.5); NEUTROPHILS % 69.9 % (36.0-66.0); PLATELET COUNT, AUTOMATED 255 10^3/uL (150-450); WHITE BLOOD COUNT 7.4 10^3/uL (4.0-10.0)
[2024-05-21 18:07] LABS: BLOOD UREA NITROGEN 13 MG/DL (9-23); CARBON DIOXIDE LEVEL 30 MMOL/L (20-31); CHLORIDE LEVEL 107 MMOL/L (98-107); CREATININE FOR GFR 0.65 MG/DL (0.55-1.30); GLOMERULAR FILTRATION RATE > 60.0 (>45); GLUCOSE, FASTING 93 MG/DL (74-106); SODIUM LEVEL 143 MMOL/L (136-145)
[2024-05-21 19:57] LABS: ETHYL ALCOHOL (ETHANOL) < 0.003 % (0.000-0.010); LIPASE 56 U/L (12-53)
[2024-05-21 20:02] LABS: FREE T4 0.97 NG/DL (0.89-1.76); THYROID STIMULATING HORMONE 1.336 uIU/ML (0.55-4.78)
[2024-05-21] MEDS: NS (Normal Saline) 0.9% 1,000 ML IV ONE (20:17)
[2024-05-21 20:49] LABS: CK-MB VALUE MASS < 1.0 NG/ML (<3.6)
[2024-05-21 20:54] LABS: CPK CREATINE PHOSPHOKINASE 87 U/L (34-145); MB/CK RELATIVE INDEX 1.14 (< OR =4)
[2024-05-21 22:05] LABS: ALBUMIN 3.9 G/DL (3.2-5.2); ALKALINE PHOSPHATASE 78 U/L (35-104); ALT/SGPT 89 U/L (7.0-40); AST/SGOT 62 U/L (<34); BILIRUBIN,DIRECT 0.1 MG/DL (<0.4); BILIRUBIN,TOTAL 0.4 MG/DL (0.3-1.2); MAGNESIUM LEVEL 2.3 MG/DL (1.8-2.4); TOTAL PROTEIN 7.4 G/DL (5.7-8.2)
[2024-05-21 22:54] LABS: KETONE, URINE AUTO RFX NEGATIVE (NEGATIVE); LEUKOCYTE ESTERASE UR AUTO RFX TRACE (NEGATIVE); MUCUS, URINE RFX SMALL (NEGATIVE); NITRITE, URINE AUTO RFX NEGATIVE (NEGATIVE); RBC, URINE AUTO RFX 1 /HPF (0-3); SQUAM EPITHELIAL CELL UR AURFX 0 /HPF (0-6); WBC, URINE AUTO RFX 5 /HPF (0-3)
[2024-05-21 23:12] LABS: AMPHETAMINES LEVEL URINE NEGATIVE (NEGATIVE); BARBITURATES URINE NEGATIVE (NEGATIVE); CANNABINOIDS URINE NEGATIVE (NEGATIVE); COCAINE METABOLITE URINE NEGATIVE (NEGATIVE); METHADONE URINE NEGATIVE (NEGATIVE); OPIATES URINE NEGATIVE (NEGATIVE); PHENCYCLIDINE URINE NEGATIVE (NEGATIVE)
[2024-05-21 23:14] LABS: BENZODIAZEPINES URINE POSITIVE (NEGATIVE)
[2024-05-22] MEDS ORDERED: HALO5TAB33 PO (01:01)
[2024-05-22] MEDS ORDERED: ASPE4PAD2 TOP (01:01)
[2024-05-22] MEDS ORDERED: LORA1TAB23 PO (01:01)
[2024-05-22] MEDS ORDERED: HALO1TAB19 PO (01:01)
[2024-05-22] MEDS ORDERED: ZOLO100T PO (01:01)
[2024-05-22] MEDS ORDERED: PRAV80TA2 PO (01:01)
[2024-05-22] MEDS ORDERED: HOME MED LIST COMPLETE! XX SCH (01:05)
[2024-05-22] MEDS ORDERED: MAALOX 30 ML SUSP *UDC PO PRN (01:35)
[2024-05-22] MEDS ORDERED: MOM 30ML SUSPENSION UDC PO PRN (01:35)
[2024-05-22] MEDS ORDERED: LIDOCAINE 5% (LIDODERM) PATCH TD PRN (01:40)
[2024-05-22 03:02] LABS: INR 0.97; PARTIAL THROMBOPLASTIN TIME 24.5 SECONDS (24.8-34.2); PROTHROMBIN TIME 13.2 SECONDS (12.5-14.5)
[2024-05-22 08:00] VITALS: BP 156/92; TEMP 98; O2SAT 96
[2024-05-22] MEDS: ENOXAPARIN 40MG/0.4ML SYRINGE (J1650 PER 10MG) SC SCH (09:00)
[2024-05-22] MEDS: SERTRALINE 100 MG TAB PO SCH (09:45)
[2024-05-22] MEDS: **hydrALAZINE HCL** 25 MG TAB PO SCH (09:46)
[2024-05-22] MEDS: DYAZIDE 37.5/25 CAP (TRIAM/HCTZ) PO SCH (09:46)
[2024-05-22] MEDS: ASPIRIN 81MG ENTERIC TABLET PO SCH (09:46)
[2024-05-22] MEDS: DOCUSATE SODIUM 100MG CAPSULE PO SCH (09:46)
[2024-05-22 12:00] VITALS: BP 153/84; TEMP 99; O2SAT 97
[2024-05-22 16:00] VITALS: BP 155/91; TEMP 99.9; O2SAT 97
[2024-05-22 16:45] VITALS: BP 164/94; TEMP 99.5; O2SAT 98
[2024-05-22] MEDS: LORazepam 0.5 MG TAB PO SCH (20:05)
[2024-05-22] MEDS: PRAVASTATIN 20 MG TAB PO SCH (20:06)
[2024-05-22 20:08] VITALS: BP 179/108; TEMP 98.1; O2SAT 94
[2024-05-22 23:15] VITALS: BP 169/105; TEMP 98.2; O2SAT 93
[2024-05-23 04:07] VITALS: BP 164/103; TEMP 98.2; O2SAT 95
[2024-05-23 06:41] LABS: HEMATOCRIT 35.5 % (36.0-47.0); HEMOGLOBIN 11.7 g/dl (12.0-15.5); MEAN CORPUSCULAR HEMOGLOBIN 31.8 pg (27.0-33.0); MEAN CORPUSCULAR VOLUME 96.5 fl (80.0-96.0); PLATELET COUNT, AUTOMATED 230 10^3/uL (150-450); RED BLOOD COUNT 3.68 10^6/uL (4.00-5.40); WHITE BLOOD COUNT 6.7 10^3/uL (4.0-10.0)
[2024-05-23 06:55] LABS: ALKALINE PHOSPHATASE 67 U/L (35-104); ALT/SGPT 67 U/L (7.0-40); AST/SGOT 48 U/L (<34); BILIRUBIN,TOTAL 0.5 MG/DL (0.3-1.2); BLOOD UREA NITROGEN 12 MG/DL (9-23); CALCIUM LEVEL 10.5 MG/DL (8.3-10.6); CARBON DIOXIDE LEVEL 29 MMOL/L (20-31); CHLORIDE LEVEL 105 MMOL/L (98-107); GLOMERULAR FILTRATION RATE > 60.0 (>45); GLUCOSE, FASTING 101 MG/DL (74-106); MAGNESIUM LEVEL 2.1 MG/DL (1.8-2.4); POTASSIUM SERUM 3.9 MMOL/L (3.5-5.1); SODIUM LEVEL 141 MMOL/L (136-145); TOTAL PROTEIN 6.4 G/DL (5.7-8.2)
[2024-05-23 08:00] VITALS: BP 148/91; TEMP 99; O2SAT 95
[2024-05-23 12:00] VITALS: BP 145/89; TEMP 98.2; O2SAT 96
[2024-05-23 16:00] VITALS: BP 136/85; TEMP 98.2; O2SAT 96
[2024-05-23 20:08] VITALS: BP 134/85; TEMP 98.8; O2SAT 94
[2024-05-24] VITALS: BP 132/85; TEMP 97.7; O2SAT 94
[2024-05-24 04:45] VITALS: BP 113/72; TEMP 98.8; O2SAT 93
[2024-05-24 12:00] VITALS: BP 112/78; TEMP 97.7; O2SAT 93
[2024-05-24 16:00] VITALS: BP 116/76; TEMP 98.1; O2SAT 93
[2024-05-24 20:05] VITALS: BP 111/77; TEMP 98.2; O2SAT 94
[2024-05-25] VITALS: BP 105/71; TEMP 98.2; O2SAT 93
[2024-05-25 04:19] VITALS: BP 108/71; TEMP 98.1; O2SAT 95
[2024-05-25 04:43] LABS: HEMATOCRIT 35.9 % (36.0-47.0); HEMOGLOBIN 11.6 g/dl (12.0-15.5); MEAN CORPUSCULAR HEMOGLOBIN 31.4 pg (27.0-33.0); MEAN CORPUSCULAR HGB CONC 32.3 g/dl (32.0-36.5); MEAN CORPUSCULAR VOLUME 97.3 fl (80.0-96.0); PLATELET COUNT, AUTOMATED 229 10^3/uL (150-450); RED BLOOD COUNT 3.69 10^6/uL (4.00-5.40); WHITE BLOOD COUNT 6.1 10^3/uL (4.0-10.0)
[2024-05-25 08:00] VITALS: BP 110/71; TEMP 98.2; O2SAT 95
[2024-05-25 12:00] VITALS: BP 105/66; TEMP 97.5; O2SAT 92
[2024-05-26 04:30] VITALS: BP 118/73; TEMP 98.2; O2SAT 93
[2024-05-27 05:00] VITALS: BP 124/84; TEMP 97.9; O2SAT 93
[2024-05-28] MEDS: ACETAMINOPHEN 325 MG TAB PO PRN (05:01)
[2024-05-28 05:22] LABS: HEMATOCRIT 36.6 % (36.0-47.0); MEAN CORPUSCULAR HEMOGLOBIN 31.7 pg (27.0-33.0); MEAN CORPUSCULAR HGB CONC 32.8 g/dl (32.0-36.5); MEAN CORPUSCULAR VOLUME 96.8 fl (80.0-96.0); PLATELET COUNT, AUTOMATED 235 10^3/uL (150-450); RED BLOOD COUNT 3.78 10^6/uL (4.00-5.40); WHITE BLOOD COUNT 5.8 10^3/uL (4.0-10.0)
[2024-05-28 05:30] VITALS: BP 106/74; TEMP 98.1; O2SAT 98
[2024-05-28 08:00] VITALS: BP 112/74; TEMP 98.1; O2SAT 96
[2024-05-28 12:00] VITALS: BP 110/74; TEMP 98.1; O2SAT 96
[2024-05-28 16:00] VITALS: BP 112/76; TEMP 97.5; O2SAT 18
[2024-05-29 04:10] VITALS: BP 103/65; TEMP 97.7; O2SAT 98
[2024-05-30 04:19] VITALS: BP 113/74; TEMP 98.1; O2SAT 98
[2024-05-31 04:00] VITALS: BP 112/71; TEMP 98.2; O2SAT 96
[2024-05-31 06:08] LABS: HEMATOCRIT 34.6 % (36.0-47.0); MEAN CORPUSCULAR HEMOGLOBIN 30.8 pg (27.0-33.0); MEAN CORPUSCULAR HGB CONC 31.8 g/dl (32.0-36.5); MEAN CORPUSCULAR VOLUME 96.9 fl (80.0-96.0); PLATELET COUNT, AUTOMATED 211 10^3/uL (150-450); RED BLOOD COUNT 3.57 10^6/uL (4.00-5.40); WHITE BLOOD COUNT 5.2 10^3/uL (4.0-10.0)
[2024-06-01 04:10] VITALS: BP 113/76; TEMP 97.9; O2SAT 97
[2024-06-02 04:16] VITALS: BP 110/70; TEMP 97.9; O2SAT 96
[2024-06-03 04:05] VITALS: BP 131/81; TEMP 98.1; O2SAT 98
[2024-06-03 06:45] LABS: HEMATOCRIT 33.8 % (36.0-47.0); MEAN CORPUSCULAR HEMOGLOBIN 31.9 pg (27.0-33.0); MEAN CORPUSCULAR HGB CONC 32.5 g/dl (32.0-36.5); PLATELET COUNT, AUTOMATED 190 10^3/uL (150-450); RED BLOOD COUNT 3.45 10^6/uL (4.00-5.40); WHITE BLOOD COUNT 5.6 10^3/uL (4.0-10.0)
[2024-06-03] MEDS: ACETAMINOPHEN 325 MG TAB PO SCH (14:46)
[2024-06-03] MEDS: NAPROXEN 250 MG TAB PO SCH (21:53)
[2024-06-04 03:38] VITALS: BP 124/77; TEMP 97.7; O2SAT 97
[2024-06-04] MEDS: VITAMIN D 1,000 INTERNATIONAL UNITS TABLET PO SCH (09:40)
[2024-06-05 04:28] VITALS: BP 127/79; TEMP 98.1; O2SAT 98
[2024-06-06 04:00] VITALS: BP 128/76; TEMP 98.1; O2SAT 95
[2024-06-07 05:10] VITALS: BP 119/76; TEMP 97.9; O2SAT 97
[2024-06-08 04:56] VITALS: BP 127/79; TEMP 98.1; O2SAT 100
[2024-06-09 04:19] VITALS: BP 134/84; TEMP 97.9; O2SAT 99
[2024-06-10 04:36] VITALS: BP 119/74; TEMP 97.7; O2SAT 96
[2024-06-11 04:38] VITALS: BP 116/72; TEMP 97.5; O2SAT 98
[2024-06-12 04:51] VITALS: BP 140/82; TEMP 97.8; O2SAT 99
[2024-06-12 21:29] VITALS: BP 130/90; TEMP 97.9; O2SAT 90
[2024-06-13 04:16] VITALS: BP 116/71; TEMP 97.7; O2SAT 96
[2024-06-14 04:00] VITALS: BP 128/78; TEMP 97.9; O2SAT 96
[2024-06-14 21:10] VITALS: BP 123/72
[2024-06-15 04:27] VITALS: BP 125/76; TEMP 98.4; O2SAT 98
[2024-06-16 04:00] VITALS: BP 123/72; TEMP 97.9; O2SAT 96
[2024-06-17 03:51] VITALS: BP 129/74; TEMP 97.9; O2SAT 96
[2024-06-17 21:00] VITALS: BP 127/74; TEMP 97.6; O2SAT 94
[2024-06-19 04:20] VITALS: BP 124/77; TEMP 98.1; O2SAT 97
[2024-06-20 04:32] VITALS: BP 122/81; TEMP 97.7; O2SAT 99
[2024-06-20 08:00] VITALS: BP 124/80; TEMP 97.9; O2SAT 97
[2024-06-20 08:23] VITALS: BP 125/82; TEMP 97.9; O2SAT 97
[2024-06-21 03:46] VITALS: BP 138/85; TEMP 97.7; O2SAT 98
[2024-06-22 04:29] VITALS: BP 131/63; TEMP 97.5; O2SAT 96
[2024-06-22 21:41] VITALS: BP 138/70
[2024-06-23 05:47] VITALS: BP 139/78; TEMP 97.7; O2SAT 96
[2024-06-24 04:20] VITALS: BP 128/83; TEMP 96.8; O2SAT 98
[2024-06-25 04:17] VITALS: BP 134/80; TEMP 97.9; O2SAT 95
[2024-06-26 05:50] VITALS: BP 143/93; TEMP 97.7; O2SAT 97
[2024-06-26] MEDS ORDERED: VITAD1000T PO (20:56)
[2024-06-26] MEDS ORDERED: ACET32TAB PO (20:56)
[2024-06-26] MEDS ORDERED: NAPR-849 PO (20:56)
[2024-06-26] MEDS ORDERED: COLA100C5 PO (20:56)
[2024-06-27 06:00] VITALS: BP 145/94; TEMP 97.7; O2SAT 98
[2024-06-27 09:02] VITALS: BP 143/91
== END 2024-06-27 16:15 | disposition home or self-care (01) | DRG 347 ==
LOC: M ED 16:48 → M ED INP 05-22 01:32 → M MSPAV 05-22 16:39
PROVIDERS: ADMIT Family Medicine; ATTEND Internal Medicine
DX: M47.812 Spondylosis without myelopathy or radiculopathy, cervical region (principal); I10 Essential (primary) hypertension; R29.6 Repeated falls; E78.5 Hyperlipidemia, unspecified; F32.9 Major depressive disorder, single episode, unspecified; R41.9 Unspecified symptoms and signs involving cognitive functions and awareness; M85.80 Other specified disorders of bone density and structure, unspecified site; R26.89 Other abnormalities of gait and mobility; M51.369 Other intervertebral disc degeneration, lumbar region without mention of lumbar back pain or lower extremity pain; Z90.79 Acquired absence of other genital organ(s); Z86.73 Personal history of transient ischemic attack (TIA), and cerebral infarction without residual deficits; Z79.899 Other long term (current) drug therapy; M25.78 Osteophyte, vertebrae; R53.1 Weakness